=== PATIENT | male | born 1955 | race Caucasian/White ===

== ENCOUNTER → 2017-03-17 | Outpatient (CLI) | payer OTHER ==
[2017-03-17 16:29] LABS: HEMATOCRIT 43.9 % (42.0-52.0); MCH 31.1 pg (26.0-34.0); MCHC 34.2 g/dL (28.0-37.0); MCV 90.9 fL (80.0-100.0); MPV 7.1 fl. (7.2-11.1); RBC 4.84 mil/uL (4.50-6.00); RDW-CV 14.5 % (10.5-14.5)
[2017-03-17 16:42] LABS: ALBUMIN 3.1 g/dL (3.4-5.0); CALCIUM 8.9 mg/dL (8.5-10.1); CREATININE 1.1 mg/dL (0.6-1.3); POTASSIUM 4.6 mmol/L (3.5-5.1); TOTAL BILIRUBIN 0.2 mg/dL (<0.1-1.0); TOTAL PROTEIN 6.8 g/dL (6.4-8.2)
== END ==
LOC: M.ULTRA 16:00 → M.CT 16:00
PROVIDERS: Internal Medicine
DX: N39.498 Other specified urinary incontinence (principal); R10.2 Pelvic and perineal pain; Z87.442 Personal history of urinary calculi

== ENCOUNTER → 2020-01-23 | Outpatient (CLI) | payer OTHER | LOC: M.RAD 13:02 | PROVIDERS: ATTEND Internal Medicine | DX: J44.9 Chronic obstructive pulmonary disease, unspecified (principal) ==